=== PATIENT | male | born 1970 | race African-American/Black ===

== ENCOUNTER 2022-08-01 12:21 | Emergency (ER) | payer OTHER, SELFPAY ==
[2022-08-01 12:40] VITALS: BP 143/71; PULSE 107; RESP 16; TEMP 37.3; O2SAT 99
--- NOTE | 2022-08-01 14:00 | ED.MALEGU ---
HPI - Male Genitourinary General Chief complaint: Urogenital-Male Stated complaint: uti Time Seen by Provider: 08/01/22 14:01 Source: patient, RN notes reviewed and old records reviewed Mode of arrival: ambulatory Limitations: no limitations History of Present Illness HPI Narrative: 52-year-old male who presents to express care with complaints of difficulty starting stream of urine, pressure feeling, with chills, fevers starting on Sunday. Patient reports that his urine does have a foul odor and that he has had some nausea also with decreased appetite, he has been taking fluids well. Patient reports some pelvic and some rectal pain also. He states his fever has been up to 102.5F and he has been taking aspirin for his fevers and discomfort. Onset (ago): day(s) (2) Severity scale (1-10): 7 Quality: aching and burning Related Data Allergies Allergy/AdvReac Type Severity Reaction Status Date / Time No Known Allergies Allergy Verified 08/01/22 13:34 Review of Systems Review of Systems: CONSTITUTIONAL: Positive for fever, chills, or sweats. CARDIOVASCULAR: Denies chest pain, palpitations, or edema. RESPIRATORY: Denies cough or dyspnea. GASTROINTESTINAL: reports lower abdominal pain, nausea,no vomiting, one episode of diarrhea. GENITOURINARY: Reports dysuria, frequency, urgency. Denies flank pain or hematuria. SKIN: Denies rash or itching. MUSCULOSKELETAL: Denies back pain or myalgia. Denies CVA tenderness, reports rectal discomfort. NEUROLOGIC: Denies headache All systems reviewed & are unremarkable except as noted in HPI and below PMFSH Past Medical History Medical History (Updated 08/03/22 @ 06:58 by Adelaida Bennett NP) No significant past medical history Surgical History Surgical History (Updated 08/03/22 @ 06:57 by Adelaida Bennett NP) H/O arthroscopic knee surgery left knee torn meniscus Family History Family History (Updated 08/03/22 @ 06:56 by Adelaida Bennett NP) Father Malignant neoplasm of prostate Social History Social History (Updated 08/03/22 @ 06:55 by Adelaida Bennett NP) Smoking status: Never smoker Alcohol intake: unknown Substance use type: does not use Living arrangements: with family Gender identity (if verbalized by the patient): Male Comments At time of signature, agree with nursing past medical, surgical, social and family history. There is no relevant family history pertinent to the presenting complaint Exam Narrative: GENERAL: Well-appearing, well-nourished, and in no acute distress. HEAD: Normocephalic, atraumatic. NECK: Supple.no lymphadenopathy CHEST: Clear to auscultation. No respiratory distress. SAO2 99% on room air HEART: Regular rate and rhythm. No murmur heard. Normal peripheral pulses. ABDOMEN: Soft, tender lower abdomen no McBurney point tenderness , nondistended, normal active bowel sounds. No CVA tenderness, reports some rectal pain. EXTREMITIES: Normal range of motion. No edema. SKIN: Warm, dry, no rash. NEURO: No focal deficits. Alert and oriented x3. Course Course Emergency Course: Patient is aware of diagnosis, understands and agrees to treatment plan.? Anticipatory guidance given.? Patient agrees to follow-up as directed and is aware of reasons to seek care at the emergency department. Portions of this record may have been created with voice recognition software Level of Care: Express Care Visit Vital Signs Vital signs: Vital Signs Temperature 37.3 C 08/01/22 12:40 Pulse Rate 107 H 08/01/22 12:40 Respiratory Rate 16 08/01/22 12:40 Blood Pressure 143/71 H 08/01/22 12:40 Pulse Oximetry 99 08/01/22 12:40 Oxygen Delivery Room Air 08/01/22 12:40 Temperature 37.3 C 08/01/22 12:40 Pulse Rate 107 H 08/01/22 12:40 Respiratory Rate 16 08/01/22 12:40 Blood Pressure 143/71 H 08/01/22 12:40 Pulse Oximetry 99 08/01/22 12:40 Oxygen Delivery Room Air 08/01/22 12:40 MDM - Male Genitourinary Differential D
== END 2022-08-01 14:20 | disposition home or self-care (01) ==
PROVIDERS: Emergency Provider Registered Nurse
DX: N39.0 Urinary tract infection, site not specified (principal)
CPT/HCPCS: 81003; 87077; 87086; 87186; 99203; G0463